=== PATIENT | male | born 1980 | race Caucasian/White ===

== ENCOUNTER → 2017-12-14 | Outpatient (CLI) | payer BC ==
--- NOTE | 2017-12-14 11:34 | DIAGNOSTIC IMAGING REPORT ---
MRI OF THE CERVICAL SPINE WITHOUT IV CONTRAST CLINICAL HISTORY: Neck pain. Right upper extremity tingling and numbness. COMPARISON STUDY: No priors. TECHNIQUE: MRI of the cervical spine is performed utilizing various T1 and T2-weighted sequences in the axial and sagittal planes. IV contrast was not administered for this examination. The examination is modestly degraded by motion artifact which caused several sequences to be repeated. FINDINGS: Cervical spine: Vertebral body height and alignment are maintained throughout the cervical spine. There is straightening of the cervical lordosis with mild reversal centered at C5. Small anterior osteophytes are noted at C5 and C6. The atlantodental articulation is maintained. The spinous processes appear intact. Normal marrow signal intensity is maintained throughout the bony structures. No destructive lesion is seen. Intervertebral discs: Mild degenerative disc desiccation is noted. There is minimal loss of height at C5-C6 and C6-C7. Spinal cord: The cervical spinal cord is normal in morphology and signal intensity. C2-C3: Unremarkable. C3-C4: Unremarkable. C4-C5: Unremarkable. C5-C6: There is a posterior disc osteophyte complex which abuts the ventral cord. Uncovertebral and facet arthropathy cause moderate to severe right and moderate left neural foraminal stenosis. The minimum AP canal diameter at this level measures 10 mm. C6-C7: A disc herniation is identified eccentric to the right, with a superiorly extruded fragment that measures up to 8.5 mm. This effaces the right aspect of the cord and impinges on the exiting nerve root. There is at least mild bilateral neural foraminal stenosis. C7-T1: Unremarkable. Soft tissues: The prevertebral and paraspinous soft tissues are normal as visualized. Brain parenchyma: The partially imaged brain parenchyma at the skull base is normal in appearance. IMPRESSION: 1. There is a disc herniation eccentric to the right at C6-C7 with a superiorly extruded fragment. This effaces the right aspect of the cord and impinges on the exiting nerve root at this level. 2. Degenerative disc disease is also seen at C5-C6. See discussion for detailed level by level analysis. 3. The cervical spinal cord is normal in morphology and signal intensity. Dictated: 12/14/2017 11:09 AM Transcribed: 12/14/2017 11:33 AM [place] Electronically signed by: Bacilio Londono M.D. 12/14/2017 11:47 AM Dictated Date/Time: 12/14/2017 11:09 AM
== END | disposition home or self-care (01) ==
LOC: C.MRIBC 09:44
PROVIDERS: ATTEND Family Medicine
DX: M54.2 Cervicalgia (principal)

== ENCOUNTER → 2018-03-10 | Outpatient (CLI) | payer BC ==
[~2018-03-10] MED LIST: ASPI81TA28 PO; CLR10 PO; FENO54TA PO; IBUP-1459 PO; MULT-506 PO; NXM/40 PO
[2018-03-10 13:10] LABS: BASO % 0.6 %; BASO ABS # 0.04 K/uL (0-0.2); EOS % 1.9 %; EOS ABS # 0.14 K/uL (0-0.5); HEMATOCRIT 45.8 % (42-52); HEMOGLOBIN 16.2 g/dL (14.0-18.0); IG# 0.02 K/uL (0.00-0.02); LYMPH % 34.8 %; LYMPH ABS # 2.53 K/uL (1.2-3.4); MEAN CELL VOLUME 85.9 fL (80-100); MEAN CORPUSCULAR HEMOGLOBIN 30.4 pg (25-34); MEAN CORPUSCULAR HGB CONC 35.4 g/dl (32-36); MEAN PLATELET VOLUME 11.6 fL (7.4-10.4); MONO % 10.5 %; MONO ABS # 0.76 K/uL (0.11-0.59); NEUT % 51.9 %; NEUT ABS # 3.77 K/uL (1.4-6.5); PLATELET COUNT 245 K/uL (130-400); RED CELL DISTRIBUTION WIDTH CV 13.1 % (11.5-14.5); RED CELL DISTRIBUTION WIDTH SD 41.2 fL (36.4-46.3); WHITE BLOOD COUNT 7.26 K/uL (4.8-10.8)
== END | disposition home or self-care (01) ==
LOC: C.LABBC 12:06
PROVIDERS: ATTEND Orthopaedic Surgery Orthopaedic Surgery of the Spine
DX: Z01.812 Encounter for preprocedural laboratory examination (principal)

== ENCOUNTER 2018-04-05 05:33 | Inpatient (IN) | payer BC ==
[2018-03-18 16:36] VITALS: BMI 39.0
--- NOTE | 2018-04-02 15:32 | HISTORY & PHYSICAL EXAMINATION ---
DATE OF ADMISSION: 04/05/2018 Preoperative history and physical for surgery, Thursday morning at [facility], a single level arthroplasty of the cervical spine. HISTORY OF PRESENT ILLNESS: Mikal is a delightful, pleasant, and communicates well. He has neck pain, arm pain, slight weakness of the right upper extremity, paresthesias and numbness. Ongoing duration, nine weeks in duration. Failed conservative care including therapy, medications, steroid injections. MEDICAL HISTORY: Positive for obesity, hyperlipidemia. SURGICAL HISTORY: Arthroscopic knee surgery, tonsillectomy. ALLERGIES: Negative. CURRENT MEDICATIONS: Nexium. FAMILY HISTORY: Positive for heart disease, diabetes. REVIEW OF SYSTEMS: He denies any blurred vision, double vision, tinnitus, vertigo. Denies chest pain, palpitations. No asthma, wheezing, shortness of breath. Denies nausea, vomiting, urgency, frequency, dysuria. His major positive review and only positive review is upper extremity issues, paresthesias, numbness and tingling. PHYSICAL EXAMINATION: VITAL SIGNS: He is 5 feet 8 inches at 260. Blood pressure 130/80, pulse 80, afebrile. GENERAL: He is alert and oriented. RESPIRATIONS: Equal bilateral breath sounds. Lungs are clear to auscultation. CARDIOVASCULAR: No edema distal extremities. Normal S1, S2. ABDOMEN: Soft and nontender. No mass or organomegaly. SKIN INTEGUMENT: Intact. MUSCULOSKELETAL: He has pain with flexion and extension of spine. He has pain with rotation and side bending. Positive Spurling maneuver. 5/5 sand analyst strength. Slight loss of triceps function. IMAGES: Reviewed demonstrated disk herniation in cervical spine C5, C6, C7 with impingement of the right S1 nerve root. PLAN: Includes a single level arthroplasty C6 and C7 cervical spine.
[~2018-04-05] VITALS: Ht 172.7 cm; Wt 118.2 kg
[2018-04-05] VITALS (15 sets, daily range): BP systolic 118–140; BP diastolic 77–98; PULSE 69–94; TEMP 36.5–36.9; O2SAT 92–97; Ht 172.7 cm; Wt 118.2 kg
[2018-04-05] MEDS ORDERED: CEFAZOLIN 2000MG IV PUSH 15 ML IV SCH (06:00)
[2018-04-05] MEDS ORDERED: LACTATED RINGER'S 1000ML 1,000 ML IV SCH (06:00)
[2018-04-05] MEDS ORDERED: SODIUM CHLORIDE 0.9% 1000ML 1,000 ML IV SCH ×2 (06:00→10:00)
[2018-04-05] MEDS ORDERED: GELATIN SPONGE SZ 100 ONE (06:51)
[2018-04-05] MEDS ORDERED: BACITRACIN 50000 UNIT VIAL ONE (06:51)
[2018-04-05] MEDS ORDERED: THROMBIN FOR SOLN 20000 UNIT KIT ONE (06:51)
[2018-04-05] MEDS ORDERED: BUPIVACAINE/EPINEPHRINE 0.5% MPF 1:200,000 30 ML VIAL ONE (06:53)
[2018-04-05] MEDS ORDERED: LIDOCAINE HCL 2% 2 ML VIAL (20MG/ML) ONE (07:02)
[2018-04-05] MEDS ORDERED: NEOSTIGMINE METHYLSULFATE 5 MG/5 ML SYR ONE (07:02)
[2018-04-05] MEDS ORDERED: ROCURONIUM BROMIDE 10 MG/ML 5 ML VIAL ONE (07:02)
[2018-04-05] MEDS ORDERED: GLYCOPYRROLATE INJ 0.2 MG/ML VIAL ONE (07:02)
[2018-04-05] MEDS ORDERED: DEXAMETHASONE SOD INJ 4 MG/ML VIAL ONE ×2 (07:02→08:44)
[2018-04-05] MEDS ORDERED: MIDAZOLAM HCL 1 MG/ML 2ML VIAL ONE (07:02)
[2018-04-05] MEDS ORDERED: PROPOFOL IV EMULSION 10 MG/ML 20 ML VIAL ONE (07:02)
[2018-04-05] MEDS ORDERED: ONDANSETRON INJ 2 MG/ML 2 ML VIAL ONE (07:02)
[2018-04-05] MEDS ORDERED: FENTANYL CITRATE INJ 50 MCG/1 ML 2 ML VIAL ONE ×2 (07:03→08:05)
--- NOTE | 2018-04-05 07:21 | History & Physical Bridge Note ---
H&P Re-Evaluation Bridge Note: I have examined the patient, reviewed the History & Physical and in the interval since the performance of the History & Physical I have noted the following changes of clinical significance: No changes noted
[2018-04-05] MEDS ORDERED: HYDROmorphone INJ 2 MG/ML SYR/VIAL ONE (08:23)
[2018-04-05] MEDS ORDERED: CISATRACURIUM BESYLATE IV SOLN 2 MG/ML 10 ML VIAL ONE (08:44)
[2018-04-05] MEDS ORDERED: NALOXONE HCL 0.4 MG/1 ML VIAL/CARP IV PRN ×2 (08:45→10:00)
[2018-04-05] MEDS ORDERED: ATROPINE SULFATE 0.1 MG/ML 5ML SYR IV PRN (08:45)
[2018-04-05] MEDS ORDERED: EpHEDrine SULFATE INJ 50 MG/ML AMP IV PRN (08:45)
[2018-04-05] MEDS ORDERED: LABETALOL HCL IV 5 MG/ML 20ML IV PRN (08:45)
[2018-04-05] MEDS ORDERED: ONDANSETRON INJ 2 MG/ML 2 ML VIAL IV PRN ×2 (08:45→10:00)
[2018-04-05] MEDS ORDERED: FLUMAZENIL 0.1 MG/1 ML 10 ML VIAL IV PRN (08:45)
[2018-04-05] MEDS ORDERED: PROMETHAZINE HCL INJ 12.5 MG in SODIUM CHLORIDE 0.9% 50ML 50 ML IV PRN (08:45)
[2018-04-05] MEDS: BUPIVACAINE/EPINEPHRINE 0.5% MPF 1:200,000 30 ML VIAL INJ ONE ×2 (09:39→09:44)
--- NOTE | 2018-04-05 09:39 | [facility] Post Operative Brief Note ---
Immediate Operative Summary Operative Date April 05, 2018. Pre-Operative Diagnosis Cervical Disc Herniation C6-C7 Post-Operative Diagnosis Cervical Disc Herniation C6-C7 Procedure(s) Performed Anterior Cervical Disc Arthroplasty C6-C7 Surgeon Dr. Baires [employer] Sales Representative Surgeon(s) TIMOTEO Kohli Estimated Blood Loss 5 ml Findings Consistent with Post-Op Diagnosis Specimens none per surgeon Anesthesia Type General Disposition Accompanied Pt To Recover: no Overlapping Procedure I was immediately available: during the entire case
[2018-04-05] MEDS ORDERED: RACEPINEPHRINE 2.25% NEBU SOLN 0.5 ML VIAL INH PRN (10:00)
[2018-04-05] MEDS ORDERED: MAGNESIUM HYDROXIDE SUSP 30 ML UDC PO PRN (10:00)
[2018-04-05] MEDS ORDERED: ACETAMINOPHEN IV 100 ML IV PRN (10:00)
[2018-04-05] MEDS ORDERED: LORAZEPAM INJ 0.5 MG in SYRINGE 0.75 ML IV PRN (10:00)
[2018-04-05] MEDS ORDERED: DEXAMETHASONE INJ 8 MG in SYRINGE 0 ML IV PRN (10:00)
--- NOTE | 2018-04-05 10:18 | DIAGNOSTIC IMAGING REPORT ---
SPINE ONE VIEW, ANY LEVEL CLINICAL HISTORY: 37 years-old Male presenting with C6-C7 ACDF. TECHNIQUE: 2 fluoroscopic image(s) recorded as part of an intraoperative procedure. COMPARISON: 03/10/2018. FINDINGS/IMPRESSION: Endotracheal tube ejects over the cervical trachea. Interval placement of hardware at the level of the lower cervical spine. Please see surgical report for further details. Fluoroscopy dosage (mGy): 16.87. Fluoroscopy time: 27.7. Number of fluoroscopic spot images: 25.4 seconds. Electronically signed by: Miquel Horner M.D. 04/05/2018 10:17 AM Dictated Date/Time: 04/05/2018 10:15 AM
[2018-04-05] MEDS: HYDROmorphone INJ 0.5 MG/0.5 ML SYR IV PRN ×4 (10:23→10:51)
--- NOTE | 2018-04-05 10:44 | OPERATIVE REPORT ---
DATE OF OPERATION: 04/05/2018 PREOPERATIVE DIAGNOSES: Cord compression, nerve root compression, C6-C7 cervical spine. POSTOPERATIVE DIAGNOSES: Cord compression, nerve root compression, C6-C7 cervical spine. PROCEDURE: Anterior cervical discectomy and arthroplasty at C6-C7. SURGEON: [place]ano Baires DO [employer] PRACTITIONER: Baljeet Tong PA-C COMPLICATIONS: Zero. BLOOD LOSS: 5 mL. ANESTHETIC: General. DESCRIPTION OF PROCEDURE: The patient was taken to the operating room and a general intubated anesthetic provided to the patient. A Blake catheter administered. Antibiotics provided and a formal time-out performed. He was placed on the table, prepped and draped sterile. We made a transverse skin incision over C6-C7 interspace. We came right down on the spinal area. The dissection was tedious and deep. He is a individual and the approach was difficult. We had no encounters of any neurovascular injury. We docked on the interspace at C6-C7 and did a complete discectomy. I was able to get lateral to the uncovertebral joints bilaterally. I could have a good visibility of left, right, anterior, posterior. I was able to use a small curette in the posterior aspect of the posterior longitudinal ligament. I undercut the osteophytes at C6 and C7. I was able to pullout ample amount of disc material. With a small nerve hook, I was able to pull out one last fragments which I thought was the main problem he was experiencing. We irrigated. We then went with the arthroplasty system by [employer]. We used the trial and settled on the actual implant which was a Mobi-C C6-C7. It was 15 mm in depth, 17 mm in width, and 5 in height. This was placed in the discectomy site C6-C7. The trial and the final implant fit was perfect. We irrigated and closed over a [place] drain. Sterile dressings were applied. The patient extubated to PACU stable. Blake catheter discontinued prior to extubation. No complications. Sponge and needle count correct. I attest to the content of the Intraoperative Record and any orders documented therein. Any exception s are noted below.
--- NOTE | 2018-04-05 11:15 | Anesthesiology Progress Note ---
Anesthesia Post Op Note Date & Time April 05, 2018 at 11:15 Vital Signs Pain Intensity: 3 Vital Signs Past 12 Hours Date Time Temp Pulse Resp B/P (MAP) Pulse Ox O2 Delivery O2 Flow Rate FiO2 04/05/18 11:10 69 18 135/88 95 Nasal Cannula 4 04/05/18 11:00 36.8 79 16 135/91 94 Nasal Cannula 4 04/05/18 10:50 80 13 138/97 97 Nasal Cannula 4 04/05/18 10:40 72 14 136/97 94 Nasal Cannula 4 04/05/18 10:30 73 15 147/92 94 Nasal Cannula 4 04/05/18 10:20 89 18 139/99 95 Oxymask 10 04/05/18 10:10 93 14 148/101 96 Oxymask 10 04/05/18 10:01 36.6 102 18 186/99 97 Oxymask 10 04/05/18 06:09 36.8 80 20 138/98 (111) 95 Nasal Cannula Notes Mental Status: alert / awake / arousable, participated in evaluation Pt Amnestic to Procedure: Yes Nausea / Vomiting: adequately controlled Pain: adequately controlled Airway Patency, RR, SpO2: stable & adequate BP & HR: stable & adequate Hydration State: stable & adequate Anesthetic Complications: no major complications apparent
[2018-04-05] MEDS ORDERED: IV FLUIDS COMPLETED PRN (12:30)
[2018-04-05] MEDS: DEXAMETHASONE INJ 6 MG in SYRINGE 0 ML IV SCH ×2 (14:24→21:13)
[2018-04-05] MEDS: CEFAZOLIN IV 1,000 MG in SYRINGE 0 ML IV SCH ×2 (14:28→22:22)
[2018-04-05] MEDS: OXYCODONE HCL IR 5 MG TAB (IMMEDIATE RELEASE) PO PRN (19:32)
[2018-04-05] MEDS: DOCUSATE SODIUM 100 MG CAP PO SCH (21:13)
[2018-04-05] MEDS ORDERED: NURSING VERBAL MED ORDER ONE (21:30)
[2018-04-06] VITALS (8 sets, daily range): BP systolic 114–131; BP diastolic 71–82; PULSE 78–99; TEMP 36.6–36.9; O2SAT 92–95
[2018-04-06] MEDS: OXYCODONE HCL IR 5 MG TAB (IMMEDIATE RELEASE) PO PRN (05:22)
[2018-04-06] MEDS: DEXAMETHASONE INJ 6 MG in SYRINGE 0 ML IV SCH (05:24)
[2018-04-06] MEDS: CEFAZOLIN IV 1,000 MG in SYRINGE 0 ML IV SCH (06:08)
--- NOTE | 2018-04-06 07:42 | Anesthesiology Progress Note ---
Anesthesia Post Op Note Date & Time April 06, 2018 at 07:42 Vital Signs Pain Intensity: 3.0 Vital Signs Past 12 Hours Date Time Temp Pulse Resp B/P (MAP) Pulse Ox O2 Delivery O2 Flow Rate FiO2 04/06/18 07:27 86 18 92 04/06/18 07:10 36.6 78 18 114/78 (90) 93 Room Air 04/06/18 07:10 Room Air 04/06/18 05:20 36.7 80 16 114/71 93 Room Air 04/06/18 03:36 86 18 94 Nasal Cannula 2.0 04/06/18 03:20 36.8 80 16 125/77 94 Nasal Cannula 2.0 04/06/18 01:20 36.8 78 16 122/76 95 Nasal Cannula 2.0 04/05/18 23:20 Nasal Cannula 2.0 04/05/18 23:20 36.7 81 17 122/78 94 Nasal Cannula 2.0 Humidified Oxygen 04/05/18 22:56 36.7 81 17 122/78 (93) 94 Nasal Cannula 2.0 04/05/18 22:51 69 18 95 Nasal Cannula 2.0 04/05/18 21:20 36.8 92 18 128/84 92 Nasal Cannula 2.0 Humidified Oxygen Notes Mental Status: alert / awake / arousable, participated in evaluation Pt Amnestic to Procedure: Yes Nausea / Vomiting: adequately controlled Pain: adequately controlled Airway Patency, RR, SpO2: stable & adequate BP & HR: stable & adequate Hydration State: stable & adequate Anesthetic Complications: no major complications apparent
--- NOTE | 2018-04-06 08:12 | Discharge Instructions ---
Discharge Instructions Date of Service April 06, 2018. Admission Reason for Admission: Cervical Stenosis, Disc Herniation Discharge Discharge Diagnosis / Problem: same Discharge Goals Goal(s): Improve function Activity Recommendations Activity Limitations: as noted below Lifting Limitations: no more than 5 pounds, until after follow-up appointment Exercise/Sports Limitations: none May Resume Sexual Activity: after follow-up appointment Shower/Bathe: may shower/bathe in 3 days Driving or Machine Use: . Instructions / Follow-Up Instructions / Follow-Up MEDICATIONS: Please take your prescriptions as instructed at your pre-op appointment. SPECIAL CARE: The following information is intended to answer some of the common questions and concerns regarding your surgery. Each patient is an individual and receives individual counselling throughout the course of treatment, from diagnosis to surgery all the way through recovery. What follows is not an exhaustive list, but should be a useful guide to some of the common questions and concerns patients have regarding their surgeries. These are not provided to keep you from calling us; rather, they give you something accurate and concrete to reference as you recover from your procedure. If you need us, we are available to you. As always, if you are not sure about something, call us at [phone]. MEDICAL EMERGENCIES: For these conditions, call 911 or go to your local hospital-based Emergency Department - not [facility] or equivalent. * Paralysis * Severe chest pain or difficulty breathing * Swelling or redness of either leg Spine procedures can be rather complex and though complications are rare, they do occur. In such cases, effective advice regarding emergency situations cannot always be addressed over the telephone. You may be referred to the emergency department for more effective management of your problem. Activity Limitations: It is important to give your body time to heal, so please limit your activities : * In general, don't do anything that moves your spine too much. You should avoid contact sports, twisting or heavy lifting while you recover. * 5-10 pounds is all you should attempt to lift. * You should not plan on driving for approximately 3 weeks and you should avoid traveling more than 30-45 minutes at a time. Longer trips should be broken down with walking breaks spaced appropriately. * Physical therapy is not usually required. * Walking and good posture practices will help you recover and regain your function. * Avoid straining or sudden changes in position. * In general, the goal is to take it easy and recover. Don't cause any new problems. Just relax. Showers: * Do not take a bath, use a Jacuzzi or hot tub or otherwise submerge your incision. * It is usually safe to take a shower 4-5 days after your surgery. * Your incision does not require any special creams or ointments. * Simply clean it with soap and water, dry and re-dress with a clean bandage afterwards. Incision: * Keep incision clean, dry and protected until your first follow-up appointment. * Some amount of drainage and redness is normal. Any drainage should be fairly clear and not have a foul odor. * If you feel anything is wrong or you have excessive drainage, please call us. * Your stitches and yana will be removed 10-14 days after your surgery. At the time of your first post-op visit. * Neck surgeries are typically closed with a suture underneath the skin. The steri-strips over the incision should be maintained until we see you in the office. Bracing: * You may be provided with a back or neck brace to encourage good posture and prevent injury. It will remind you not to do too much as you heal and will alert others to the fact that you have had a surgery. * Back braces may be removed for showers and when you are resting at home. They must be worn when you are walking around for any period of time or for travel. * For neck surgery, you will likely be provided with two cervical collars. The soft collar ([place] or foam rubber) is worn most commonly throughout the day and while sleeping. The plastic collar (provided at the hospital) is for showering/bathing. * Except while eating, collars should remain in place. More specifically, bracing is provided for a purpose and should be worn. * Please obtain your brace or collars prior to your operation and bring them to the hospital with you on the day of surgery. * You should also bring your collars to your post-op appointment with Dr. Baires. You should always take good care of your body and practice healthy habits, especially following surgery. You should: * Follow your doctor's treatment plan * Sit and stand properly with good posture (ears over shoulders, shoulders over hips) Don't slouch * Learn to lift correctly * Exercise regularly (low-impact aerobic exercise is especially good, but check with your doctor first) * Generally, be up and walking for 5-10 minutes at a time at least 3-4 times per day from the day you get home * Increasing walking to tolerance until you can walk for 20-30 minutes at a time * Attain and maintain a healthy body weight * Eat healthy foods ( a well-balanced, low-fat diet rich in fruits and vegetables) and get enough calcium * Avoid excessive use of alcohol When to call our office - If you notice any of the following: * Increased pain not relieve by pain medicine * Fevers greater then 100 degrees F, chills or flu symptoms * Increased redness around incision * Drainage from the incision that is not clear * Any foul smelling drainage * Swelling or fluid collection beneath the skin Miscellaneous: * In the hospital, you may be given a walker or cane for support while walking. These are temporary needs and are intended to prevent injuries due to falls. You may discontinue them when you feel strong and steady enough on your feet. * Sleep in a comfortable position. We find that many patients find a lounge chair or recliner with several pillows to be beneficial in the early post-operative period. * The support stockings should be used for 7-10 days and may be discontinued when you are back to walking more and conducting usual household activities. No problem is insignificant. We are here to help you and get you well. Contact us at [phone]. Definitions: Foraminotomy: If part of the disc or a bone spur (osteophyte) is pressing on a nerve as it leaves the vertebra (through an exit called the foramen), a foraminotomy may be done. Otomy means "to make an opening." A foraminotomy is making the opening of the foramen larger, so the nerve can exit without being compressed. Laminotomy: Similar to the foraminotomy, a laminotomy makes a larger opening, this time in your bony plate protecting your spinal canal and spinal cord (the lamina). The lamina may be pressing on your nerve, so the surgeon may make more room for the nerves using a laminotomy. Laminectomy: Sometimes, a laminotomy is not sufficient. The surgeon may need to remove all or part of the lamina. This procedure is called a laminectomy. This can often be done at many levels without any harmful effects. Current Hospital Diet Patient's current hospital diet: Full Liquid Diet Discharge Diet Recommended Diet: Regular Diet Procedures Procedures Performed: Anterior Cervical Disc Arthroplasty C6-C7 Pending Studies Studies pending at discharge: no Medical Emergencies . Who to Call and When: Medical Emergencies: If at any time you feel your situation is an emergency, please call 911 immediately. . Non-Emergent Contact Non-Emergency issues call your: Primary Care Provider . "Provider Documentation" section prepared by Michoacano Baires. .
[2018-04-06] MEDS: DOCUSATE SODIUM 100 MG CAP PO SCH (08:42)
[2018-04-06] MEDS ORDERED: ASPIRIN 81 MG ECTAB PO SCH (09:00)
[2018-04-06] MEDS ORDERED: MULTIVITAMIN TAB PO SCH (09:00)
[2018-04-06] MEDS ORDERED: LORATADINE 10 MG TAB PO SCH (09:00)
[2018-04-06] MEDS ORDERED: PANTOprazole SOD 40 MG TAB PO SCH (09:00)
[2018-04-07] MEDS ORDERED: BISACODYL 5 MG TABEC PO PRN (06:00)
[2018-04-07] MEDS ORDERED: BISACODYL 10 MG SUPP PR PRN (06:00)
--- NOTE | 2018-04-07 12:43 | DISCHARGE SUMMARY ---
HOSPITAL COURSE: Discharged home on 06 of April. Improved, stable. Minimal complaints. Some improvement in neurological function. No chest pain, shortness of breath. No confusion. No calf tenderness. ASSESSMENT: Status post disc arthroplasty, cervical. PLAN: Includes instructions, precautions, education. Discharged home. Collar for support. Medication for support and a followup in 10 days.
== END 2018-04-06 11:15 | disposition home or self-care (01) | DRG 518 ==
LOC: C.ACU 05:33 → C.3E 07:00 → OBSVTOIN 07:00 → ENRESERV 10:54
PROVIDERS: ADMIT Orthopaedic Surgery Orthopaedic Surgery of the Spine; ATTEND Orthopaedic Surgery Orthopaedic Surgery of the Spine
PROC: 0RR30JZ Replacement of Cervical Vertebral Disc with Synthetic Substitute, Open Approach (ICD-10-PCS; principal; 2018-04-05 07:30)
DX: M50.223 Other cervical disc displacement at C6-C7 level (principal); E78.5 Hyperlipidemia, unspecified; E66.9 Obesity, unspecified; Z79.899 Other long term (current) drug therapy; Z68.39 Body mass index [BMI] 39.0-39.9, adult